=== PATIENT | female | born 1960 | race Two or more races ===

== ENCOUNTER 2016-08-09 09:47 | Emergency (ER) | payer OTHER ==
--- NOTE | 2016-08-09 10:23 | ER Document Report ---
ED Medical Screen (RME) - General Stated Complaint: FLANK PAIN Notes: Patient complains of orange-colored urine 2 days, which improved with increased water intake. Now is having left flank pain. Also feels weak. Denies nausea or vomiting. No history of kidney stones. No fever. I have greeted and performed a rapid initial assessment of this patient. A comprehensive ED assessment and evaluation of the patient, analysis of test results and completion of the medical decision making process will be conducted by additional ED providers. TRAVEL OUTSIDE OF THE [place] IN LAST 30 DAYS: No Physical Exam - Vital signs Vitals: Temp Pulse Resp BP Pulse Ox 98.8 F 79 16 147/84 H 98 08/09/16 10:08/09/16 10:08/09/16 10:08/09/16 10:08/09/16 10:09 - Back Notes: No CVAT left flank Course - Vital Signs Vital signs: Temp Pulse Resp BP Pulse Ox 98.8 F 79 16 147/84 H 98 08/09/16 10:08/09/16 10:08/09/16 10:08/09/16 10:08/09/16 10:09
[2016-08-09 10:53] LABS: APPEARANCE,URINE CLEAR; BILIRUBIN,URINE NEGATIVE (NEGATIVE); GLUCOSE, URINE NEGATIVE (NEGATIVE); KETONES,URINE NEGATIVE (NEGATIVE); LEUKOCYTE ESTERASE,URINE NEGATIVE (NEGATIVE); NITRITE,URINE NEGATIVE (NEGATIVE); PROTEIN,URINE NEGATIVE (NEGATIVE); URINE SPECIFIC GRAVITY 1.013; UROBILINOGEN,URINE NEGATIVE mg/dL (<2.0)
[2016-08-09 12:24] VITALS: BP 147/80
--- NOTE | 2016-08-09 12:40 | ER Document Report ---
ED General - General Chief Complaint: Flank Pain Stated Complaint: FLANK PAIN TRAVEL OUTSIDE OF THE [place] IN LAST 30 DAYS: No - HPI Patient complains to provider of: left flank pain Notes: Patient states dark urine with left flank pain approximately 24-48 hours prior to arrival. Patient states dark urine. To drinking plenty water. Patient states the pain at this time. Patient has a history of fevers chills nausea vomiting diarrhea. Patient is resting comfortably listening to her iPad upon my evaluation. Patient denies any history kidney stones. - Related Data Allergies/Adverse Reactions: No Known Allergies Allergy (Unverified 08/09/16 10:22) Past Medical History - Social History Smoking Status: Never Smoker Chew tobacco use (# tins/day): No Drug Abuse: None Family History: Reviewed & Not Pertinent Patient has suicidal ideation: No Patient has homicidal ideation: No Renal/ Medical History: Denies: Hx Peritoneal Dialysis Review of Systems - Review of Systems Constitutional: No symptoms reported EENT: No symptoms reported Cardiovascular: No symptoms reported Respiratory: No symptoms reported Gastrointestinal: No symptoms reported Genitourinary: Flank pain, Hematuria Female Genitourinary: No symptoms reported Musculoskeletal: No symptoms reported Skin: No symptoms reported Hematologic/Lymphatic: No symptoms reported Neurological/Psychological: No symptoms reported -: Yes All other systems reviewed and negative Physical Exam - Vital signs Vitals: Temp Pulse Resp BP Pulse Ox 98.8 F 79 16 147/84 H 98 08/09/16 10:09 08/09/16 10:09 08/09/16 10:09 08/09/16 10:09 08/09/16 10:09 Interpretation: Normal - General General appearance: Appears well, Alert - HEENT Head: Normocephalic, Atraumatic Eyes: Normal Pupils: PERRL - Respiratory Respiratory status: No respiratory distress Chest status: Nontender Breath sounds: Normal Chest palpation: Normal - Cardiovascular Rhythm: Regular Heart sounds: Normal auscultation Murmur: No - Abdominal Inspection: Normal Distension: No distension Bowel sounds: Normal Tenderness: Nontender Organomegaly: No organomegaly - Back Back: Normal, Nontender - Extremities General upper extremity: Normal inspection, Nontender, Normal color, Normal ROM , Normal temperature General lower extremity: Normal inspection, Nontender, Normal color, Normal ROM , Normal temperature, Normal weight bearing. No: Miguel Angel's sign - Neurological Neuro grossly intact: Yes Cognition: Normal Orientation: AAOx4 [place] Coma Scale Eye Opening: Spontaneous [place] Coma Scale Verbal: Oriented [place] Coma Scale Motor: Obeys Commands [place] Coma Scale Total: 15 Speech: Normal Motor strength normal: LUE, RUE, LLE, RLE Sensory: Normal - Psychological Associated symptoms: Normal affect, Normal mood - Skin Skin Temperature: Warm Skin Moisture: Dry Skin Color: Normal Course - Re-evaluation Re-evalutation: 08/09/16 18:53 CT scan was performed showing some dilation of the ureteral system on the left side possibly consistent with a recently passed stone. No signs of UTI no hematuria. Patient will be discharged home 08/09/16 18:54 The patient presents with abdominal pain without signs of peritonitis or other life-threatening or serious etiology. The patient appears stable for discharge and has been instructed to return immediately if the symptoms worsen in any way , or in 8-12hr if not improved for re-evaluation. The patient has been instructed to return if the symptoms worsen or change in any way.. - Vital Signs Vital signs: Temp Pulse Resp BP Pulse Ox 98.3 F 83 18 147/80 H 98 08/09/16 12:21 08/09/16 12:21 08/09/16 12:21 08/09/16 12:21 08/09/16 12:21 Discharge - Discharge Clinical Impression: Flank pain Condition: Good Disposition: HOME, SELF-CARE Instructions: Flank Pain ([facility]), Oral Narcotic Medication ([facility]) Additional Instructions: Your CAT scan today shows signs of possibly a recently passed kidney stone. You may take Tylenol and Motrin for pain control. Return to the ER if symptoms worsen Prescriptions: Tramadol HCl [Ultram 50 mg Tablet] 50 mg PO ASDIR PRN #20 tablet PRN Reason: Forms: Return to Work Referrals: KAPIL BARNES MD [Primary Care Provider] - Follow up in 3-5 days
== END 2016-08-09 12:59 | disposition home or self-care (01) ==
LOC: ER 09:47
DX: R10.9 Unspecified abdominal pain (principal); R39.89 Other symptoms and signs involving the genitourinary system
CPT/HCPCS: 76380; 81001; 99284